=== PATIENT | female | born 1970 | race Caucasian/White ===

== ENCOUNTER 2017-04-16 20:17 | Emergency (ER) | payer OTHER, SELFPAY ==
[~2017-04-16] VITALS: Ht 167.6 cm; Wt 113.4 kg
[2017-04-16] MEDS ORDERED: LISINOPRIL20 MG PO (20:28)
[2017-04-16] MEDS ORDERED: CYMBALTA30 MG PO (20:28)
[2017-09-10] MEDS ORDERED: PERCOCET 5-3251 EACH PO (10:17)
[2017-09-10] MEDS ORDERED: NEURONTIN400 MG PO (10:18)
== END 2017-04-16 23:00 | disposition home or self-care (01) ==
LOC: ED 20:17
DX: K52.9 Noninfective gastroenteritis and colitis, unspecified (principal); J02.9 Acute pharyngitis, unspecified; E87.6 Hypokalemia; F17.200 Nicotine dependence, unspecified, uncomplicated; Z79.899 Other long term (current) drug therapy
CPT/HCPCS: 80053; 85025; 87081; 87880; 96361; 96374; 96375; 99283; J2270; J2550; J7030

== ENCOUNTER → 2017-09-10 | Emergency (ER) | payer OTHER ==
[~2017-09-10] VITALS: Ht 167.6 cm; Wt 113.4 kg
[~2017-09-10] MED LIST: CYMBALTA30 MG PO; LISINOPRIL20 MG PO; NEURONTIN400 MG PO; PERCOCET 5-3251 EACH PO
== END ==
LOC: ED 09:57
DX: S91.112A Laceration without foreign body of left great toe without damage to nail, initial encounter (principal); W26.0XXA Contact with knife, initial encounter

== ENCOUNTER 2017-12-24 21:03 | Inpatient (IN) | payer OTHER ==
[~2017-12-24] VITALS: Ht 182.9 cm; Wt 102.1 kg
[~2017-12-24 21:03] MED LIST changes: +KEFLEX500 MG PO; -LISINOPRIL20 MG PO; +NEURONTIN300 MG PO; -NEURONTIN400 MG PO; +PERCOCET 10-321 EACH PO; -PERCOCET 5-3251 EACH PO; +POTASSIUM CHLO10 MEQ PO; +ROBAXIN-750750 MG PO; +ZESTORETIC 20-1 EACH PO; +ZOFRAN ODT4 MG PO
--- NOTE | 2017-12-25 00:35 | NUR ---
PT ARRIVED FROM ED VIA STRETCHER. SHE WAS ABLE TO WALK FROM THE STRETCHER TO THE BED. VS TAKEN AND WNL. PT REPORT ABD PAIN. RESPIRATIONS ARE EVEN AND NONLABORED. PT ORIENTED TO ROOM AND CALL LIGHT IS WITHIN REACH.
--- NOTE | 2017-12-25 01:30 | NUR ---
MEDICATIONS ADMINISTERED AND ASSESSMENT COMPLETE. PT REPORT NAUSEA HAS RETURNED. MORPHIN ADMINISTERED FOR ABD PAIN 11/01. PT HAS FRESH ICEWATER AT BEDSIDE. WILL ADMINISTER ZOFRAN SOON ABLE. CALL LIGHT IS WITHIN REACH.
--- NOTE | 2017-12-25 02:20 | NUR ---
PT IS AWAKE IN BED DENIES FURTHER NEEDS AT THIS TIME.
--- NOTE | 2017-12-25 04:42 | NUR ---
ASSESSED PT AND ADMINISTERED MEDICATIONS. PT REPORTS NAUSEA HAS INPROVED BUT WOULD LIKE TO STAY ON TOP OF IT. VS AND I&O'S ENTERED AND FRESH ICEWATER AT BEDSIDE. PT DENIES FURTHER NEEDS AT THIS TIME.
--- NOTE | 2017-12-25 04:45 | NUR ---
PT HAS BEEN AWAKE MOST OF THE NIGHT. SHE HAS NAUSEA BUT NO EMESIS SINCE BEING ADMITTED. 40 MEQ KCL IN NS IS INFUSING AT 100MLS/HR. ZOFRAN WAS GIVEN AND SHE HAS REQUIRED MORPHINE X2. 1ST DOSE WAS 2MG AND NEXT DOSE WAS 4MG. SHE DENIES ANY TREMORS, ANXIETY, OR AGITATION FROM ETOH WITHDRAWAL. ADVISED PT TO LET US KNOW IF SHE FEELS THIS WAY. SHE IS ON A CLEAR LIQUID DIET AND HAS ONLY WANTED ICEWATER SO FAR. NICOTINE PATCH IS ON HER RIGHT SHOULDER. ED HOLD ORDERS UNTIL DR. SHEN SEE'S HER.
--- NOTE | 2017-12-25 05:58 | NUR ---
PT IS RESTING WITH EYES CLOSED, RESPIRATIONS ARE EVEN AND NONLABORED. CALL LIGHT IS WITHIN REACH.
--- NOTE | 2017-12-25 07:20 | NUR ---
PLACED CALL TO MD. MD GAVE NEW VERBAL ORDERS. VERIFIED VERBAL ORDERS USING THE READBACK METHOD. NOTIFIED LAB OF NEW ORDERS.
--- NOTE | 2017-12-25 07:47 | NUR ---
PT REPROTS NAUSEA WOKE HER UP. SHE WAS JUST GIVEN PAIN COVERAGE WITH IV MORPHINE, NOW ADMINISTER 12.5 PHENERGAN. PT ALERT AND ORIENTED. COOPERATIVE WITH STAFF
--- NOTE | 2017-12-25 09:25 | NUR ---
PATIENT RESTING IN BED. VITALS AND I&O DONE. CALL LIGHT WITHIN REACH. NO OTHER NEEDS AT THIS TIME.
--- NOTE | 2017-12-25 11:49 | NUR ---
NOTIFIED OF LOW PHOS AND K AT THIS TIME NEW ORDERS GIVEN
--- NOTE | 2017-12-25 13:51 | NUR ---
PT OFF THE UNIT FOE HIDA SCAN AT THIS TIME
--- NOTE | 2017-12-25 16:04 | NUR ---
Medications reconciled with patient interview
--- NOTE | 2017-12-25 16:26 | NUR ---
NRE I.V. SITE ESTABLISHED POST HIDA SCAN. 4MG I.V. MORPHINE GIVEN AT THIS TIME. WILL GIVE PHENERGAN NOW FOR NAUSEA. PT REPORTS 01/01 PAIN.
--- NOTE | 2017-12-25 17:10 | NUR ---
PT HAS BEEN NPO SINCE THIS AM, HIDA SCAN THIS AFTERNOON. PT REPORTS PAIN ABD 5-10/10, 4MG MORPHINE EFFECTIVE, PHENERGAN GIVEN TWICE AND ZOFRAN GIVEN TWICE THIS SHIFT. PT REPORTS FEELING GRUMPY WITH TOO MANY PEOPLE DISTURBING HER IN HER ROOM TODAY. PT IS COOPERATIVE WITH CARE. WAITING FOR RESULTS FROM HIDA SCAN.
--- NOTE | 2017-12-25 17:43 | NUR ---
PT COMPLETED 90% OF DINNER REPORTS MINIMAL/TOLERABLE PAIN 3/10 AT THIS TIME AT HE BACK.
--- NOTE | 2017-12-25 20:00 | NUR ---
PATIENT WAS JUST MEDICATEDBY THE DAYSHIFT NURSE FOR N/V AND DOES NOT REALLY WANT TO BE BOTHERED UNTIL 2200.
--- NOTE | 2017-12-25 21:38 | NUR ---
CALLED AND WANTED ME TO MAKE SSURE THE PATIENT HAD A GALLBLADDER FOLDER, THAT SHE WAS NPO AFTER MIDNIGHT, AND THAT LONG SHE WAS OK WITH IT HE WOULD TALK WITH HER IN THE MORNING ABOUT ADDING HER ON TO SURGERY. THIS WAS DONE.
--- NOTE | 2017-12-25 21:43 | NUR ---
ROUNDED CHARGE. PATIENT IS RESTING IN BED. PATIENT DENIES ANY NAUSEA OR PAIN. NO COMMENTS, QUESTIONS, OR CONCERNS NOTED. NO NEEDS NOTED. CALL LIGHT IN REACH.
--- NOTE | 2017-12-25 22:02 | NUR ---
VITALS AND I&OS DONE AND CHARTED. BEDSIDE TABLE AND CALL LIGHT IN REACH
--- NOTE | 2017-12-25 23:02 | NUR ---
PATIENT REQUESTED THAT NO MEDS OR VITAL SIGNS BE DONE UNTIL 2200. ALL PATIENT'S MEDS FINALLY GIVEN AND PATIENT ASSESSED AND IN BED. SCD'D ON, 6MG IV MS GIVEN FOR 6-8/10 OF ABD AND LOW BACK. PATIENT ALSO SAID SHE WAS NAUSEATED AFTER GETTING UP TO USE THE BATHROOM SO 12.5MG IV PHENERGAN GIVEN SIVP IN 20MLS NS OVER 10 MINUTES ALSO GIVEN. PATIENT'S PAIN NOW DOWN TO 4/10 AND NAUESEA RESOLVING.
--- NOTE | 2017-12-25 23:51 | NUR ---
PATIENT RESTING QUIETLY, SUPINE, EYES CLOSED, RESPIRATIONS REGULAR AND EVEN AT A RATE OF 16BPM. PATIENT APPEARS IN NO DISTRESS.
--- NOTE | 2017-12-25 23:56 | NUR ---
PATIENT NOW NPO FOR POSSIBLE AM SURGERY.
--- NOTE | 2017-12-26 00:49 | NUR ---
PATIENT CONTINUES TO REST SUPINE WITH HEAD OF BED ELEVATED ABOUT 30 DEGRESS. RESPIRATIONS REGULAR AND EVEN AT A RATE OF 16. EYES CLOSED PATIENT APPEARS IN NO DISTRESS.
--- NOTE | 2017-12-26 01:00 | NUR ---
PATIENT UP TO THE BATHROOM TO VOID 300MLS AND BACK TO BED. PATIENT INDEPENDENT IN ROOM, GAIT STEADY, CONNECTS AND DISCONNECTS OWN SCD'S AND TAKES IV POLE WITH HER TO AND FROM BATHROOM.
--- NOTE | 2017-12-26 02:21 | NUR ---
PATIENT RESTING QUIETLY, STILL HAS NOT CALLED FOR ANYTHING. PATIENT MOVES HER HANDS OCCASIONALLY, BUT OTHERWISE IS RESTING QUIETLY AND APPEARS TO BE IN NO DISCOMFORT.
--- NOTE | 2017-12-26 06:44 | NUR ---
PATIENT HAD A RESTFULL NIGHT OTHER THAN USING THE RESTROOM A COUPLE TMES. VOIDING WELL. INDEPENDENT IN ROOM. PATIENT HAD A DOSE OF PHENERGAN AND 6MG MS AND SHE RESTED WELL UNTIL A FEW MINUTES AGO, WHEN SHE BECAME NAUSEATED AGAIN AND GOT 8MG IV ZOFRAN.
--- NOTE | 2017-12-26 07:10 | NUR ---
REPORT RECEIVED FROM COMMERCIAL LIGHT FIXTURE ASSEMBLER RN. PT APPEARS TO BE SLEEPING. AWAKES TO VERBAL STIMULI. REPORTS PAIN THIS MORNING 09/01. PRN MEDICAITON TO BE GIVEN. D5LR @ 85ML/HR IN LEFT HAND IV. NO S/SX OF INFILTRATION OR PHLEBITIS. CALL LIGHT IN REACH. SCD'S IN PLACE. DENIES OTHER NEEDS.
--- NOTE | 2017-12-26 07:44 | NUR ---
PT REPORTING 6/10 PAIN. PRN MORPHINE QIVEN WITH 12.5MG PHENERGAN FOR NAUSEA. DENIES OTHER NEEDS.
--- NOTE | 2017-12-26 08:03 | NUR ---
PATIENT IN BED RESTING ,NPO, WATING ON SHOWER IN 20 MIN, BEFOUR SURGERY, NO OTHER NEEDS AT THIS TIME.
--- NOTE | 2017-12-26 09:00 | NUR ---
PT OOB TO SHOWER WITH SARAH STOUT INDEPENDENTLY. NEW GOWN AND SOCKS. CALL LIGHT IN REACH.
--- NOTE | 2017-12-26 10:00 | NUR ---
LEFT HAND IV INFILTRATED. NEW 20G IV PLACED IN RIGHT FOREARM. PT TOLERATED WELL. RETURNS BLOOD AND FLUSHES WELL. D5LR INFUSING AT 85ML/HR. SCD'S IN PLACE. CALL LIGHT IN REACH.
[2017-12-26] MEDS ORDERED: ZOFRAN4 MG PO (11:27)
[2017-12-26] MEDS ORDERED: PROVENTIL HFA6.7 GM INH (11:27)
--- NOTE | 2017-12-26 13:01 | NUR ---
PT REPORTING PAIN 08/01. PRN TORIDOL GIVEN. NAUSEA ALSO REPROTED. 4M ZOFRAN ADMINISTERED. DENIES FURTHER NEEDS. CALL LIGHT IN REACH.
--- NOTE | 2017-12-26 14:02 | NUR ---
PATIENT IN BED RESTING, STILL WAITING ON HER SURGERY. VITAL TAKEN .CALL LIGHT IN REACH. NO OTHER NEEDS AT THIS TIME.
--- NOTE | 2017-12-26 14:10 | NUR ---
PT OFF FLOOR TO SURGERY.
--- NOTE | 2017-12-26 14:41 | HP ---
[facility] [address], [place] [address] Signed ADMISSION DATE: 12/24/2017 HISTORY: This 47-year-old white woman was seen in the emergency room and evaluated by Dr. Walker. She had been having complaints of generalized abdominal pain, not focal in anyway. She notes inability to eat well due to the pain. She notes no specific food that causes her symptoms, however. She has no associated back pain particularly, though she does describe chronic low back pain. She was seen about a month ago in [place], which an MRI was performed showing gallbladder sludge and uterine fibroids. The patient has had poor oral intake over the past several weeks by the sounds of it. She does not have epigastric or right subcostal pain particularly and no left lower abdominal pain necessarily. Her evaluation in the emergency room includes a gallbladder ultrasound, which showed mild gallbladder wall thickening. No sonographic Fernandes sign and a prominent common bile duct of uncertain etiology without associated mass. Upon close review of the ultrasound, the gallbladder sludge was quite minimal and thickening of the gallbladder wall was quite minimal as well. I agreed to admit the patient over after consultation with Dr. Walker for further evaluation and care. PAST MEDICAL HISTORY: Includes cervical fusion, operation in the past. SOCIAL HISTORY: She does smoke marijuana on an episodic basis. She smokes cigarettes daily. She does drink alcohol. It is uncertain just how much actually. She lives in [place] with a live-in boyfriend. She has grown children. REVIEW OF SYSTEMS: She denies any chest pain or shortness of breath. Has no dysphagia, hematemesis or blood per rectum. She does feel somewhat thirsty. PHYSICAL EXAMINATION: GENERAL: This is a pleasant white woman, who is lying in bed, who does not look systemically toxic. HEENT: Mucous membranes are dry. Trachea is midline. There is no carotid bruit. CHEST: Clear. HEART: Regular without murmur. Electronically Signed By: ANETTE SHEN MD 12/26/17 1441 PATIENT NAME: DILIP GOMEZ HISTORY AND PHYSICAL DATE OF : 66 REPORT #: [id number] PHYSICIAN: ANETTE SHEN MD PCP: GINGER TRUJILLO PA-C REPORT IS CONFIDENTIAL AND NOT TO BE RELEASED WITHOUT AUTHORIZATION [facility] [address], [place] [address] Signed ABDOMEN: Obese, but soft and scaphoid. There is no distention. Palpation reveals no focal tenderness, though if there is any tenderness is more in the right upper abdomen. There is no obvious ascites particularly. EXTREMITIES: Show no clubbing, cyanosis, or edema. LABORATORY DATA: Show a white count at presentation at 2100 hours on December 24 to be 7.8, hematocrit 38.9 with platelets of 323,000 and her white count this morning is 4.1 with hematocrit 32.6, platelets of 224,000. Differential is normal. Chem profile shows electrolytes to be improved this morning. Creatinine is 0.42, phosphorus low at 1.4. Bilirubin initially 1.7, now 1.2. Liver enzymes show lactate dehydrogenase slightly elevated to 24. Lipase approximately 72. Amylase this morning 32. Beta hCG negative. I reviewed her ultrasound report and images. ASSESSMENT: The etiology of her abdominal pain, which has been chronic over the past month, but culminating in dehydration, currently is uncertain. Consideration has been made for biliary source of the problem and in particular with a somewhat dilated bile duct on ultrasound, concern was raised by the interpreting radiologist, Dr. Carl about distal common duct stone. I think it is unlikely. The possibility of pancreatic neoplasm is always a consideration, but her bilirubin was only 1.7 and now down to 1.4, and I think it unlikely and no neoplasm was seen on the ultrasound. As a functional gallbladder problem may be the underlying etiology. We will organize for a CCK-HIDA test. If this is entirely normal, CT scan will be considered and possibly endoscopic evaluation. In the meantime, fluid resuscitation, antibiotic, Ancef and ulcer prophylaxis will be initiated. MD KALYN Calderon/MABELL /[id number] Electronically Signed By: ANETTE SHEN MD 12/26/17 1441 PATIENT NAME: DILIP GOMEZ HISTORY AND PHYSICAL DATE OF : 66 REPORT #: [id number] PHYSICIAN: ANETTE SHEN MD PCP: GINGER TRUJILLO PA-C REPORT IS CONFIDENTIAL AND NOT TO BE RELEASED WITHOUT AUTHORIZATION [address] [address] Signed cc: MD Ginger Marshall PA-C Copies: NATALYA WALKER MD, CHLOE K PA-C ~ Electronically Signed By: ANETTE SHEN MD 12/26/17 1441 PATIENT NAME: DILIP GOMEZ HISTORY AND PHYSICAL DATE OF : 66 REPORT #: [id number] PHYSICIAN: ANETTE SHEN MD PCP: GINGER TRUJILLO PA-C REPORT IS CONFIDENTIAL AND NOT TO BE RELEASED WITHOUT AUTHORIZATION
--- NOTE | 2017-12-26 17:37 | NUR ---
12/26/17 1737 Stephanie López 1715- PT ARRIVES TO PACU ALERT AND ORIENTED X3. PT ON 6 L O2 VIA MASK. PT HAS PILLOW TO BRACE STOMACH WITH COUGHING, RATING PAIN 8/10.
--- NOTE | 2017-12-26 18:20 | NUR ---
RECEIVED PT TO FLOOR. SLIDE TRANSFER TO BED. SCD'S HOOKED UP. LAP SITES X4 WITH STERI STRIPS C/D/I. KEITH DRAIN TO RLQ HAS SOME SHADOWING. ON WHOLE GAUZE AND TAPE. V/S TAKEN. BP SLIGHTY ELEVATED. AT151/103. PAIN REPORTED 10/10. 6MG MORPHINE GIVEN. WATER PROVIDED. PT TOLERATED OK AT THIS TIME. LUNGS SOUND CLEAR. HR IRREGULAR.
--- NOTE | 2017-12-26 18:45 | NUR ---
PT REPORTING PAIN 9/10. 6 MG MORPHINE GIVEN.
--- NOTE | 2017-12-26 19:36 | NUR ---
PT ARRIVED TO FLOOR AT 1820. PAIN 10/10. MORPHINE 6 MG Q30P. WATER AT BEDSIDE. SOME NAUSEA. LAP SITES X4 STERI STRIPS C/D/I. SOME DRAINAGE FRO KEITH DRAIN INSERT SITE. PAIN 9/10 AFTER PAIN MEDICATION.
--- NOTE | 2017-12-26 19:39 | NUR ---
medicated with morphine 6mg iv v/o 12/02 abd pain. toby draining
--- NOTE | 2017-12-26 20:15 | NUR ---
DR SHEN NOTIFIED OF PT INCREASED DRAINAJE FROM KEITH INSERTION SITE, NAD POOR PAIN CONTROL WITH IV MORPHINE. NEW ORDERS FOR OK TO REINFORCE KEITH DRAINAGE SITE AND START PO OXYCODONE 10MG PO Q6H BEFORE
--- NOTE | 2017-12-26 21:32 | NUR ---
HELPED CRISTIN QUINONES WITH CHANGING HER BEDDING. DRAINED KEITH AND CHARTED. PT OR JONI NEEDS ANYTHING ELSE OF NOW.
--- NOTE | 2017-12-26 21:42 | NUR ---
VITALS DONE AND CHARTED PER CRISTIN QUINONES. I&OS DONE AND CHARTED.
--- NOTE | 2017-12-26 21:48 | NUR ---
PATIENT'S KEITH DRAIN SITE WAS SATURATED. ENTIRE DRESSING CHANGED. SPLIT SPONGE DRAIN SPONGES PLACED AND THEN REINFORCED BY 2 ABD PADS AND SECURED WITH SURGICAL TAPE. OTHER LAP SITES LOOK GOOD DRY STERI-STRIPS WITH DRY RED DRAINAGE. MEDICATED FOR NAUSEA WITH PROMETHAZINE 12.5MG IN 20MLS SALINE AND 6MG MS IV, FOLLOWED BY 10MG OXYCODONE. BEDDING ALSO CHANGED.
--- NOTE | 2017-12-26 23:26 | NUR ---
30MG IV TORADOL AND 1 PERCOCET GIVEN FOR ABD PAIN THAT CONTINUES TO BE 10/10 AND ICE PACK APPLIED TO SURGICAL AREA.
--- NOTE | 2017-12-26 23:40 | NUR ---
HERE AND DISCUSSED NOT BEING ABLE TO GET PATIENT'S PAIN UNDER CONTROL. HE INFORMED ME SHE HAS CHRONIC PAIN SO TO JUST KEEP GIVEN THE PAIN MEDS I CAN THEY ARE ORDERED AND THAT I COULD GIVE 0.5-1MG OF ATIVAN Q4HRS PRN FOR ANXIETY. I REPEATED THIS ORDER BACK AND AGREED.
--- NOTE | 2017-12-27 00:44 | NUR ---
1 LITER LR BOLUS STARTED TO RUN OVER AN HOUR. PATIENT HAS HAD 1MG PO ATIVAN AND 6MG MORE IV MORPHINE. PATIENT'S PAIN IS DOWN TO A 7/10 NOW AND SHE IS GETTING MORE COMFORTABLE.
--- NOTE | 2017-12-27 02:08 | NUR ---
PATIENT CONTINUES TO REST QUIETLY AT THIS TIME. O2 SATS 92 % RA AND HEART RATE IS 102. PATIENT RESTING QUIETLY, EYES CLOSED, RESPIRATIONS EVEN AND REGULAR AT A RATE OF 16. SCD'S IN PLACE.
--- NOTE | 2017-12-27 03:20 | NUR ---
VITALS AND I&OS DONE AND CHARTED. HELPED PT TO THE BATHROOM AND BACK TO BED. 2 ICE PACKS GIVEN. BEDSIDE TABLE AND CALL LIGHT IN REACH. PT NEEDS NOTHING MORE AT THIS TIME.
--- NOTE | 2017-12-27 04:55 | NUR ---
HAD A HARD TIME CONTROLLING PAIN AT THE BEGINING OF THE SHIFT, BUT WITH THE USE OF MULTIPLE DOSES OF MORPHINE, 1 PERCOCET, 2 OXYCODONE, AND AND 1MG PO ATIVAN PATIENT FINALLY WAS ABLE TO GET SOME SLEEP. SCD'S ON. PULSE OX 98% ON RA WITH HR OF 68. RESPIRATIONS REGULAR AND EVEN AT 16. PATIENT IS VOIDING FINE. D5LR AT 125MLS HR AND PATIENT ALSO GOT A 1 LITER BOLUS OF LR.
--- NOTE | 2017-12-27 06:13 | NUR ---
PATIENT AGAIN COMPLAINING OF 6/10 ABD PAIN AND OP SITES STILL LOOK GOOD, KEITH DRESSING STILL CLEAN DRY AND INTACT. PATIENT GIVEN 1MG ATIVAN AND 1 PERCOCET.
--- NOTE | 2017-12-27 06:35 | NUR ---
VITALS AND I&OS DONE AND CHARTED. HELPED PT TO THE BATHROOM AND BACK TO BED. FRESH WATER AND CUP OF ICE GIVEN.
--- NOTE | 2017-12-27 08:02 | NUR ---
RECEIVED REPORT FROM WORD PROCESSOR OPERATOR RN. PT IN BED. DENIES NAUSEA OR NEEDS. SCD'S IN PLACE. D5LR@ 125ML/HR. CALL LIGHT IN REACH. PAIN TOLERABLE AT THIS TIME.
--- NOTE | 2017-12-27 08:14 | NUR ---
PATIENT WAS AWAKE, REFUSED ANY BREAKFAST OR ANY CARES, CALL LIGHT IN REACH, NO OTHER NEEDS AT THIS TIME
--- NOTE | 2017-12-27 08:30 | NUR ---
PT HAS DECREASED OUTPUT. FINE CRACKLES IN BACE OF LUNGS.DR SHEN NOTIFIED. NEW ORDERS RECEIVED.
--- NOTE | 2017-12-27 09:03 | NUR ---
PT REPORTING 7/10 PAIN. TORIDOL IV GIVEN. PLAN TO WALK IN HALLS TODASY. FLUIDS AT 125.
--- NOTE | 2017-12-27 10:18 | NUR ---
V/S TAKEN HR AT 126 AT REST. PT AMBULATED 1 LAP HR WAS AT 137 TOOK SOME TIME TO RECOVER TO A HR OF 120. ALL OTHER VITALS WNL.
--- NOTE | 2017-12-27 10:48 | NUR ---
STILL NO OUTPUT. INCREASED HR. DR SHEN NOTIFIED. NEW ORDERS RECEIVED.
--- NOTE | 2017-12-27 12:44 | NUR ---
REPORTING PAIN 10/10. PRN PAIN MEDICATION GIVEN.
--- NOTE | 2017-12-27 13:48 | OR ---
[facility] [address], [place] [address] Signed DATE OF OPERATION: 12/26/2017 SURGEON: Anette Shen MD PREOPERATIVE DIAGNOSES: 1. Acute acalculous cholecystitis. 2. Morbid obesity. 3. Substance dependency (alcohol, marijuana, and oxycodone). POSTOPERATIVE DIAGNOSES: 1. Acute acalculous cholecystitis. 2. Morbid obesity. 3. Substance dependency (alcohol, marijuana, and oxycodone). 4. Occult fatty liver with early cirrhosis and massively enlarged liver. PROCEDURES PERFORMED: 1. Laparoscopic cholecystectomy (top-down technique) with intraoperative cholangiogram, prolonged, very difficult and complicated. 2. Laparoscopic liver biopsy. ANESTHESIA: General endotracheal, Michela Blanquita, C.R.N.A., and local 20 mL of 0.25% Marcaine with epinephrine. INDICATION: This is a 47-year-old white woman, who is a patient of Ginger Eid PA-C. She presented to the emergency room on 12/24/2017, with complaints of generalized abdominal pain which has been recurrent over the preceding month. A gallbladder ultrasound was performed, which showed minimal sludge in the gallbladder and was thought to be possibly a dilated common duct. The ampulla was not able to be visualized. There were no stones. The patient has a prodigious alcohol history, drinking alcohol daily, taking marijuana orally, at least monthly, sometimes more often and has been on oxycodone at least 4 to 6 times a day since cervical fusion. Operation, a number of months ago. She underwent a CCK-HIDA test yesterday, which showed normal ejection fraction but market reproduction of her symptoms. Mindful of the multiplicity of etiologies for abdominal pain, but given the probability, this represents a cholecystitis problem. I have recommended cholecystectomy preferred by laparoscopic approach. The risks of bleeding, infection, bile duct injury, need for Electronically Signed By: ANETTE SHEN MD 12/27/17 7508 PATIENT NAME: DILIP GOMEZ OPERATIVE REPORT DATE OF : 66 REPORT #: [id number] PHYSICIAN: ANETTE SHEN MD PCP: GINGER EID PA-C REPORT IS CONFIDENTIAL AND NOT TO BE RELEASED WITHOUT AUTHORIZATION [facility] [address], [place] [address] Signed open procedure, and most importantly failure to cure her symptoms was reviewed in detail. She understands and wished to proceed. FINDINGS: Abdominal obesity was noted as sick as before of course. Not expected, but nevertheless present was massive enlargement of the liver with fatty infiltration and early cirrhotic changes. The infundibulum of gallbladder was obscured due to the fatty nature of the medial segment of the left lobe of the liver. On the basis of those findings and with the findings of the gallbladder appearing to be chronically inflamed, cholecystectomy was performed. A top-down approach was used. The back wall of the gallbladder was left in situ in the upper 1/2 of the liver bed, but later mucosa obliterated. The infundibulum was completely excised and remarkably ultimately a cholangiogram was performed, which showed no sign of dilated common duct and no filling defect within the biliary tree. There was spillage of contrast at the insertion site into the cystic duct, which was of no concern at all. The liver was biopsied, given its fatty infiltrated appearance and early cirrhotic change. A drain was placed as well. The mucosa of the gallbladder was chronically inflamed. There were no stones. The mucoid bilious fluid of the gallbladder was obviously abnormal. DESCRIPTION OF PROCEDURE: The patient was brought to the operating room, given a general endotracheal anesthetic. Preoperative antibiotic Ancef had been ongoing. Sequential compression device stockings used and heparin subcutaneously administered. After satisfactory general endotracheal anesthesia and resolution of relatively frequent PVCs with administration of some lidocaine, the abdomen was prepared with a chlorhexidine solution and draped sterilely. She had a very thick abdominal wall pannus. An infraumbilical incision was made and using an open Rashad cannula technique, the abdomen was entered and pneumoperitoneum achieved to a level of 14 mmHg of carbon dioxide gas. Intraabdominal inspection was undertaken showing a markedly enlarged fatty liver. An epigastric 12 mm port was placed and two additional right midclavicular and right anterior axillary line 5 mm ports. The gallbladder was visualized after elevating the very heavy right lobe of the liver and medial segment of left lobe of the liver. The gallbladder was chronically inflamed. The findings were disturbing in the gallbladder infundibulum and cystic duct was completely obscured by a markedly enlarged liver lobe. Under the circumstances, deemed advisable to place a fan retractor. A mid epigastric 5 mm port was placed for this purpose. Faith of the gallbladder was grasped and elevated cephalad, but given the heavy nature of the liver, it was clear that this would be untenable for exposure of the infundibulum of the gallbladder. On that basis, a fan retractor was used to elevate the medial segment of left lobe of the liver to better visualize the gallbladder. Though, the infundibulum was still obscured, it was deemed most advisable to do a "top-down" dissection of the gallbladder. Using electrocautery, the gallbladder anteriorly and Electronically Signed By: ANETTE SHEN MD 12/27/17 1348 PATIENT NAME: DILIP GOMEZ OPERATIVE REPORT DATE OF : 66 REPORT #: [id number] PHYSICIAN: ANETTE SHEN MD PCP: GINGER EID PA-C REPORT IS CONFIDENTIAL AND NOT TO BE RELEASED WITHOUT AUTHORIZATION [facility] [address], [place] [address] Signed superiorly was dissected free with electrocautery. Without much time, entry to the gallbladder was noted. The mucoid sick-appearing bile was noted. This was suctioned free. There were no stones. Dissection was begun more fully, but it was deemed most advisable at the moment to leave the back wall of the gallbladder as the friable liver bed wall was subjected to easy bleeding. With meticulous care, the gallbladder was dissected free inferiorly until the back wall area could be more fully entered. Areas of bleeding were secured with electrocautery or clips and sometimes clips in significant numbers, but always in a safe area. Ultimately, an infundibulum could be more fully dissected free ultimately identifying the cystic duct itself. A clip was applied across the gallbladder cystic duct junction and transverse choledochotomy made in the cystic duct. The egress of normal-appearing clear bile was noted on retrograde milking of the duct. An Melton type cholangiocatheter was inserted into the cystic duct. It was not easy to secure the clamp fully to avoid bile spillage, but all of that could be done from the moment and therefore intraoperative fluoroscopy undertaken. Free flow of contrast was noted into the biliary tree with prompt emptying into the duodenum. There was no sign of filling defect biliary anomaly or dilated duct as had been suggested by preoperative ultrasound. There was admittedly spillage at the insertion site of the catheter into the cystic duct of no consequence at all. The cystic duct was triply clipped and divided and the gallbladder essentially removed from that point as it had been completely freed up. It was placed in an endobag and extracted through the infraumbilical port site, opened on the back table and found to have significant cholesterolosis, subacute and chronic inflammation, but no sign of stones or neoplasm. Irrigation was undertaken in subhepatic space. Using electrocautery, the retained mucosa on the back wall of the gallbladder was cauterized completely. This obliterated the retained mucosa (which was significantly attenuated anyway). Irrigation was undertaken. Overall, there was good hemostasis, but given the extent of dissection, the friability of the liver was then soaked with some Moise and hemostatic powder was insufflated into the hepatic bed. Through a right-sided trocar site, a 7 mm flat Deejay drain was placed in the subhepatic space and secured to the skin with nylon suture and attached to bulb suction. Plans were then made for liver biopsy using a biopsy gun, biopsy device through the epigastric area. Biopsy was taken in the medial segment of the left lobe of the liver. Some bleeding occurred as would be expected. It was easily secured with cautery. Irrigation was undertaken. Excess irrigation fluid was suctioned free. Plans were then made for closure. The infraumbilical fascial incision was reapproximated with interrupted 0 Vicryl suture. All wounds were copiously irrigated with saline solution and 20 mL of 0.25% Marcaine with epinephrine injected locally in the incisions. The skin was then closed with interrupted 3-0 Vicryl. Steri-Strips were applied. Drains attached to bulb suction. Electronically Signed By: ANETTE SHEN MD 12/27/17 1348 PATIENT NAME: DILIP GOMEZ OPERATIVE REPORT DATE OF : 66 REPORT #: [id number] PHYSICIAN: ANETTE SHEN MD PCP: GINGER EID PA-C REPORT IS CONFIDENTIAL AND NOT TO BE RELEASED WITHOUT AUTHORIZATION [facility] [address] [place] [address] Signed The operation was prolonged, complicated, and difficult lasting 4 times longer than usual and extremely difficult. MD KALYN Calderon/LYN /[id number] cc: RAJI Whitmore MD Copies: GINGER EID PA-C, SHELDON MD ~ Electronically Signed By: ANETTE SHEN MD 12/27/17 1348 PATIENT NAME: DILIP GOMEZ OPERATIVE REPORT DATE OF : 66 REPORT #: [id number] PHYSICIAN: ANETTE SHEN MD PCP: GINGER EID PA-C REPORT IS CONFIDENTIAL AND NOT TO BE RELEASED WITHOUT AUTHORIZATION
--- NOTE | 2017-12-27 14:23 | NUR ---
PATIENT UP IN HER CHAIR. SHOWER REFUSED, BEDDING CHANGED, FRESH WATER AND TEA GIVEN, CALL LIGHT IN REACH, NO OTHER NEEDS AT THIS TIME.
--- NOTE | 2017-12-27 14:30 | NUR ---
PT OOB UP TO CHAIR WITH TEA. D5LR @ 125. PT REPORTING NAUSEA SO ZOFRAN 4M GIVEN. DRESSING CHANGE TO KEITH DRAIN INSERT SITE. MODERATE AMOUNT SEROSANG DRAINAGE.
--- NOTE | 2017-12-27 14:32 | EKG ---
[facility] [address] [facility] [place], [place] [address] Signed Sinus rhythm with frequent premature ventricular complexes ST \T\ T wave abnormality, consider lateral ischemia Abnormal ECG No previous ECGs available Confirmed by BRIJESH VARGAS DO ([id number]) on 12/27/2017 2:32:19 PM Electronically Signed By: BRIJESH VARGAS DO 12/27/17 1432 PATIENT NAME: DILIP GOMEZ Electrocardiogram DATE OF : 66 PHYSICIAN: BRIJESH VARGAS DO REPORT #: [id number] REPORT IS CONFIDENTIAL AND NOT TO BE RELEASED WITHOUT AUTHORIZATION
--- NOTE | 2017-12-27 18:39 | NUR ---
AMBULATED IN WARE 3 TIMES THIS SHIFT. REPORTS CONSTANT NAUSEA AND PAIN DESPITE INTERVENTIONS. MANY PRN PAIN AND NAUSEA MEDS AVALIBLE. OT TACHY THIS SHIFT WITH HR UP TO 137 WITH AMBULATION. HAS GOTTEN BETTER TOWARDS END OF SHIFT AT 106. U/O HAS INCREASED. SEROSANG FROM KEITH DRAIN. D5LR 125. LAP SITES LOOK GOOD.
--- NOTE | 2017-12-27 20:00 | NUR ---
PATIENT RESTING QUIETLY, RESPIRATIONS REGULAR AND EVEN. PULSE OX 96% ON RA AND HR=.70
--- NOTE | 2017-12-27 21:28 | NUR ---
VITALS AND I&OS DONE AND CHARTED. CALL LIGHT AND BEDSIDE TABLE IN REACH. CLEANED UP HER ROOM AND FRESH WATER GIVEN.
--- NOTE | 2017-12-27 23:08 | NUR ---
PATIENT UP TO THE BATHROOM WITH STANDBY ASSIST. PAIN IS 7/10 IN THE ABD AND BACK NOW WITH SOME NAUSEA.
--- NOTE | 2017-12-27 23:29 | NUR ---
PATIENT GIVEN 12.5MG PROMETHAZINE IN 20MLS OF NS AND 30MG TORADOL IV GIVEN AND A NEW BAG OF D5LR HUNG.
--- NOTE | 2017-12-28 01:32 | NUR ---
PATIENT WAS JUST AMBULATED TO THE BATHROOM WITH HER IV POLE AND BACK TO BED AFTER VOIDING. SCD'S AND PULSE OX HOOKED BACK UP.
--- NOTE | 2017-12-28 01:54 | NUR ---
PATIENT SAYING SHE IS UNABLE TO SLEEP NOW AND HER ABD PAIN IS 8/10. NOT DUE FOR ANY MORE PAIN MEDICATION 1MG PO ATIVAN GIVEN TO TRY AND HELP HER SLEEP.
--- NOTE | 2017-12-28 04:02 | NUR ---
PATIENT RESTING QUIETLY, EYES CLOSED, RESPIRATIONS EVEN AND REGULAR AT A RATE OF 18. SATS 98% ON ROOM AIR WITH HR=90.
--- NOTE | 2017-12-28 04:57 | NUR ---
VITALS DONE AND CHARTED. FRESH ICE WATER GIVEN. BEDSIDE TABLE AND CALL LIGHT IN REACH. PT NEEDS NOTHING MORE AT THIS TIME.
--- NOTE | 2017-12-28 06:12 | NUR ---
PATIENT STILL HAVING PROBLEMS KEEPING PAIN UNDER CONTROL THROUGH THE NIGHT WITH PERCOCET, ATIVAN, MOTRIN, TORADOL, AND NAUSEA WITH PROMETHAZINE AND ZOFRAN. PATIENT DOES NOT KNOW HOW SHE IS GOING TO BE ABLE TO DEAL WITH THIS AT HOME. PATIENT HAS BEEN UP VOIDING WELL AND IV FLUIDS STILL RUNNING WITHOUT DIFFICULTY.
--- NOTE | 2017-12-28 06:22 | NUR ---
HELPED PT TO THE BATHROOM AND BACK TO BED. SCD'S PLUGGED BACK IN. BEDSIDE TABLE AND CALL LIGHT WITHIN REACH. PT NEEDS NOTHING MORE AT THIS TIME.
--- NOTE | 2017-12-28 08:00 | NUR ---
RECEIVED REPORT FROM POPPED [employer]N [employer]EN ATTENDANT RN. PT APPEARS TR OBE SLEEPING. RESPIRATIONS ARE EQUAL AND NONLABORED. CPOX IN PLACE. HR 103 O2 94%. D5LR @ 125. SCD'S IN PLACE. CALL LIGHT IN REACH.
[2017-12-28] MEDS ORDERED: IBUPROFEN600 MG PO (08:52)
[2017-12-28] MEDS ORDERED: NICOTINE PATCH1 EAC1 TD (08:52)
[2017-12-28] MEDS ORDERED: OXYCODONE-ACET1 EAC3 PO (08:53)
[2017-12-28] MEDS ORDERED: FAMOTIDINE20 MG PO (08:53)
--- NOTE | 2017-12-28 09:00 | NUR ---
ROUNDED WITH DR SHEN. DRAIN DC'D. PT SL. DR GLEZ'D TO GIVE PERCOCET EARLY FOR 10/01 PAIN. DISCHARGE ORDERS RECEIVED. IV REMOVED.
[2017-12-28] MEDS ORDERED: PERCOCET 7.5-31 EACH PO (09:16)
--- NOTE | 2017-12-29 14:33 | DS ---
[facility] [address], [place] [address] Signed ADMISSION DATE: 12/25/2017 DISCHARGE DATE: 12/28/2017 REASON FOR ADMISSION: This 47-year-old white woman was seen in the emergency room by Dr. Walker with complaints of generalized abdominal pain, not focal, particularly. She notes inability to eat well due to the pain. This had been going on at least a month. She was seen a month ago in [place] where an MRI was performed showing gallbladder sludge, and uterine fibroids. The patient has had poor oral intake over the preceding several weeks. Evaluation in the emergency room included a gallbladder ultrasound, which showed mild gallbladder wall thickening. No sonographic Fernandes sign and prominent common bile duct of uncertain etiology without associated pancreatic neoplasm. She is admitted for further evaluation and care. PERTINENT PHYSICAL EXAMINATION: GENERAL: Showed a pleasant, obese white woman who did not look systemically toxic. Mucous membranes were dry. Trachea midline. CHEST: Clear. HEART: Regular without murmur. ABDOMEN: Quite obese, but soft and scaphoid. There was no sign of distention, particularly palpation revealed no focal tenderness, though if any tenderness, some in the right upper abdomen. LAB STUDIES: At presentation showed her white count to be 7.8, hematocrit 38.9, platelets 323,000. Creatinine 0.42, phosphorus low at 1.4. Bilirubin initially 1.7, decreased to 1.2. Liver enzymes showed lactate dehydrogenase elevated mildly. Lipase was normal at 72, amylase 32. Beta hCG was negative. HOSPITAL COURSE: The patient was admitted with uncertainty as to the underlying cause of her discomfort and pain. Although the ultrasound showed some minimal amount of sludge, it was unclear if her symptoms which were now becoming rather chronic, was related to acalculus cholecystitis. On that basis, she underwent a CCK-HIDA test. It showed a normal ejection fx but marked reproduction of her complaint of abdominal pain.On December 26, 2017, she underwent laparoscopy where she was found to have a chronically inflamed gallbladder. Unexpectedly, she had a markedly enlarged liver with early cirrhotic changes. Electronically Signed By: ANETTE SHEN MD 12/29/17 1433 PATIENT NAME: DILIP GOMEZ DISCHARGE SUMMARY DATE OF : 66 REPORT #: [id number] PHYSICIAN: ANETTE SHEN MD PCP: GINGER EID PA-C REPORT IS CONFIDENTIAL AND NOT TO BE RELEASED WITHOUT AUTHORIZATION [facility] [address], [place] [address] Signed Cholecystectomy was performed, though was particularly complex and challenging given the enlarged liver and early cirrhotic changes. A top-down approach was required for safe cholecystectomy. Cholangiogram was still able to be performed, which showed no sign of filling defect or large common duct or ampullary abnormality. A drain was placed given the length and extent of operation. Postoperatively, she had progressive improvement. She was soon thereafter able to tolerate oral intake though she still complained of incisional pain. Her pre op sx were improved, but not completely gone. I suspect simple liver engorgement and chronic inflammation may have been part of her problem. It was noted that she has a very extensive alcohol abuse history in addition to longstanding use of opiate pain medication for her cervical spine surgery, which was several months ago. She had no sx of alcohol withdrawal syndrome post operatively, and says she is committed to avoiding alcohol at time of discharge. DISCHARGE MEDICATIONS: Will include, 1. Nicotine patch 21 mg topically daily #30 refill. 2. Percocet 7.5/325 1-2 p.o. q.4 hours p.r.n. pain, #10. 3. Pepcid 20 mg p.o. b.i.d. 4. Ibuprofen 600 mg p.o. q.6 hours p.r.n. pain. She will continue with her lisinopril hydrochlorothiazide 1 tab p.o. daily (13/03.5.). 5. Oxycodone Tylenol combination as before under the discretion of her neurosurgeon. 6. Gabapentin 300 mg p.o. t.i.d. 7. Robaxin 750 mg p.o. b.i.d. as needed for muscle spasm. 8. Albuterol inhaler 2 puffs q.6 hours as needed for wheezing. 9. Zofran 4 mg 1-2 p.o. q.8 hours as needed. DISCHARGE DIAGNOSES: 1. Acute acalculous cholecystitis with chronic abdominal pain, s/p Lap choleycstectomy with intraoperative cholangiogram and liver bx... prolonged complicated and difficult. 2. Occult fatty enlargement of liver with early cirrhotic changes, status post laparoscopic biopsy. 3. Daily alcohol use and abuse. 4. Episodic marijuana use. 5. Daily smoking. 6. Obesity. 7. Hypertension. 8. Chronic pain syndrome, ongoing Rx of oxycodone, and Tylenol. Electronically Signed By: ANETTE SHEN MD 12/29/17 1433 PATIENT NAME: DILIP GOMEZ DISCHARGE SUMMARY DATE OF : 66 REPORT #: [id number] PHYSICIAN: ANETTE SHEN MD PCP: GINGER EID PA-C REPORT IS CONFIDENTIAL AND NOT TO BE RELEASED WITHOUT AUTHORIZATION [facility] [address] [place] [address] Signed FOLLOWUP PLAN: She is return to see me in approximately four weeks. She should lift no more than 20 pounds for the next 2 weeks. She is permitted to shower. She should walk on a daily basis. She should drink no more alcohol. Avoid smoking marijuana and avoid smoking altogether. She will follow up with Ginger Eid her primary provider as well. MD KALYN Calderon/LYN /[id number] cc: RAJI Whitmore MD Copies: GINGER EID PA-C, SHELDON MD ~ Electronically Signed By: ANETTE SHEN MD 12/29/17 1433 PATIENT NAME: DILIP GOMEZ DISCHARGE SUMMARY DATE OF : 66 REPORT #: [id number] PHYSICIAN: ANETTE SHEN MD PCP: GINGER EID PA-C REPORT IS CONFIDENTIAL AND NOT TO BE RELEASED WITHOUT AUTHORIZATION
== END 2017-12-28 09:33 | disposition home or self-care (01) | DRG 418 ==
LOC: ED 21:03 → MS 21:04
PROVIDERS: ADMIT Surgery
PROC: 0FB24ZX Excision of Left Lobe Liver, Percutaneous Endoscopic Approach, Diagnostic (ICD-10-PCS; 2017-12-26)
PROC: BF101ZZ Fluoroscopy of Bile Ducts using Low Osmolar Contrast (ICD-10-PCS; 2017-12-26)
PROC: 0FT44ZZ Resection of Gallbladder, Percutaneous Endoscopic Approach (ICD-10-PCS; principal; 2017-12-26 12:30)
DX: K81.2 Acute cholecystitis with chronic cholecystitis (principal); F11.20 Opioid dependence, uncomplicated; F17.210 Nicotine dependence, cigarettes, uncomplicated; E66.9 Obesity, unspecified; E86.0 Dehydration; K76.0 Fatty (change of) liver, not elsewhere classified; K74.60 Unspecified cirrhosis of liver; F10.20 Alcohol dependence, uncomplicated; F12.20 Cannabis dependence, uncomplicated; F41.9 Anxiety disorder, unspecified; I10 Essential (primary) hypertension; G89.4 Chronic pain syndrome; Z98.1 Arthrodesis status; Z79.899 Other long term (current) drug therapy; Z68.30 Body mass index [BMI] 30.0-30.9, adult
CPT/HCPCS: 00790; 36415; 74300; 76705; 78227; 80053; 81001; 82150; 82247; 82465; 83615; 83690; 84100; 84478; 84550; 84703; 85025; 88304; 88307; 88313; 93005; 93010; 94762; 96361; 96374; 96375; 96376; 99285; 99406; A9537; G0378; G0480; J0330; J0690; J1100; J1170; J1644; J1885; J2250; J2270; J2405; J2550; J2704; J2805; J3010; J7030; J7060; J7120; Q9967

== ENCOUNTER 2018-05-28 18:49 | Emergency (ER) | payer OTHER ==
[~2018-05-28] VITALS: Ht 182.9 cm; Wt 102.1 kg
[~2018-05-28 18:49] MED LIST changes: +FAMOTIDINE20 MG PO; +IBUPROFEN600 MG PO; +NICOTINE PATCH1 EAC1 TD; +OXYCODONE-ACET1 EAC3 PO; +PERCOCET 7.5-31 EACH PO; +PROVENTIL HFA6.7 GM INH; +ZOFRAN4 MG PO
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
== END 2018-05-28 19:50 | disposition home or self-care (01) ==
LOC: ED 18:49
PROC: 0XQTXZZ Repair Left Ring Finger, External Approach (ICD-10-PCS; principal; 2018-05-28)
DX: S61.215A Laceration without foreign body of left ring finger without damage to nail, initial encounter (principal); F17.200 Nicotine dependence, unspecified, uncomplicated; Z79.899 Other long term (current) drug therapy; Z23 Encounter for immunization; W26.8XXA Contact with other sharp object(s), not elsewhere classified, initial encounter
CPT/HCPCS: 12001; 90471; 90715; 99282-25

== ENCOUNTER 2020-08-15 20:39 | Emergency (ER) | payer OTHER ==
[~2020-08-15] VITALS: Ht 182.9 cm; Wt 124.7 kg
[2020-08-16] MEDS ORDERED: CYCLOBENZAPRINE10 MG PO (00:07)
[2020-08-16] MEDS ORDERED: ULTRAM50 MG PO (00:07)
== END 2020-08-16 00:23 | disposition home or self-care (01) ==
LOC: ED 20:39
DX: M54.42 Lumbago with sciatica, left side (principal)
CPT/HCPCS: 72131; 73700; 81001; 96374; 96375; 99284-25; J1170; J1885; J2405

== ENCOUNTER 2022-08-21 20:05 | Emergency (ER) | payer OTHER ==
[~2022-08-21] VITALS: Ht 182.9 cm; Wt 136.1 kg
[~2022-08-21 20:05] MED LIST changes: +CYCLOBENZAPRINE10 MG PO; +ULTRAM50 MG PO
--- OUTSIDE RECORDS SUMMARY | 2022-08-21 20:08 | XMS ---
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 - 2 Visits in 30 Days CARE PROVIDERS -[facility]- Dentist: [employer] [facility] PHONE: [phone] SHOSHANA TRUJILLO Physician Communications Marketing Intern 05/29/2018-Current PHONE: [phone] Margaret has no Care Guidelines for this patient. EFrancisco VISIT COUNT (12 MO.) [address] [place] [address] TOTAL 2 NOTE: Visits indicate total known visits. ED/UCC VISIT TRACKING (12 MO.) 08/21/2022 20:05 [facility] TYPE: Emergency COMPLAINT: - WOUND CHECK 08/15/2022 12:16 [facility] [place] TYPE: Emergency COMPLAINT: - SWELLING/BODY PART DIAGNOSES: - Chronic obstructive pulmonary disease, unspecified - Contact with and (suspected) exposure to COVID-19 - Multiple subsegmental pulmonary emboli without acute cor pulmonale - Nicotine dependence, cigarettes, uncomplicated - Nontraumatic ischemic infarction of muscle, left lower leg - Other long term care social worker (current) drug therapy - Other pulmonary embolism without acute cor pulmonale - Shortness of breath INPATIENT VISIT TRACKING (12 MO.) 08/15/2022 16:13 [facility] [place] [facility] TYPE: Surgery DIAGNOSES: - Encounter for screening, unspecified - Other disorder of circulatory system - Other pulmonary embolism without acute cor pulmonale [email or web address]
[2022-08-21] MEDS ORDERED: BACTRIM DS TAB1 EACH PO (23:42)
[2022-08-21] MEDS ORDERED: CEPHALEXIN500 MG PO (23:42)
[2022-08-22 00:05] VITALS: BP 129/82
== END 2022-08-22 00:08 | disposition home or self-care (01) ==
LOC: ED 20:05
DX: T81.41XA Infection following a procedure, superficial incisional surgical site, initial encounter (principal); F17.200 Nicotine dependence, unspecified, uncomplicated; Z79.899 Other long term (current) drug therapy
CPT/HCPCS: 36415; 74177; 80053; 85025; 99284-25; A9270; Q9967

== ENCOUNTER 2024-09-29 11:58 | Emergency (ER) | payer OTHER ==
[~2024-09-29] VITALS: Ht 182.9 cm; Wt 154.3 kg
[~2024-09-29 11:58] MED LIST changes: +BACTRIM DS TAB1 EACH PO; +CEPHALEXIN500 MG PO
[2024-09-29 12:11] LABS: BASOPHILS 0.6 % (0.1-1.2); EOSINOPHILS 0.9 % (0.7-5.8); LYMPHOCYTES 11.9 % (19.3-51.7); MCH 29.1 PG (25.6-32.2); MCHC 31.7 g/dL (32.2-35.5); MCV 91.8 fL (79.4-94.8); MONOCYTES 4.1 % (4.7-12.5); NEUTROPHILS 82.2 % (34.0-71.1); RBC 4.61 M/uL (3.93-5.22)
[2024-09-29] MEDS ORDERED: ALBUTEROL SULFATE 0.5% 2.5 MG/0.5 ML VIAL INH ONE (12:15)
[2024-09-29] MEDS ORDERED: MAGNESIUM SULFATE 2 GM/50 ML BAG IV ONE (12:15)
[2024-09-29] MEDS ORDERED: POTASSIUM CHLO10 ME1 PO (12:15)
[2024-09-29] MEDS ORDERED: HYDROCODON-ACE1 EA10 PO (12:16)
[2024-09-29] MEDS ORDERED: BENZONATATE200 MG PO (12:16)
[2024-09-29] MEDS ORDERED: AZITHROMYCIN250 MG PO (12:17)
[2024-09-29] MEDS ORDERED: FUROSEMIDE40 MG PO (12:17)
[2024-09-29] MEDS ORDERED: PREGABALIN50 MG PO (12:18)
[2024-09-29] MEDS ORDERED: ELIQUIS5 MG PO (12:18)
[2024-09-29] MEDS ORDERED: LORAZEPAM2 MG NG (12:19)
[2024-09-29] MEDS ORDERED: LOSARTAN POTAS100 MG PO (12:19)
[2024-09-29] MEDS ORDERED: FLUTICASONE PRO16 GM NAS (12:20)
[2024-09-29 12:23] LABS: INR 0.98 (0.80-1.30); PROTIME 12.6 Sec (11.2-14.2)
[2024-09-29 12:35] LABS: ALT (SGPT) 19.0 U/L (14-59); AST (SGOT) 14.0 U/L (15-37); GLOMERULAR FILTRATION RATE,EST 102.0 mL/min (>60); PROTEIN, TOTAL 7.4 g/dL (6.4-8.2); UREA NITROGEN 12.0 mg/dL (7-18)
[2024-09-29] MEDS ORDERED: FUROSEMIDE 100 MG/10 ML VIAL IV ONE (12:45)
[2024-09-29 13:05] LABS: BLOOD/HGB, URINE TRACE-I (Negative); KETONE, URINE NEGATIVE (Negative); LEUK ESTERASE, URINE NEGATIVE (negative); NITRITE, URINE NEGATIVE (negative)
[2024-09-29 13:11] LABS: EPITHELIAL CELLS, URINE 0 /lpf (0-1+)
[2024-09-29 13:12] LABS: BACTERIA, URINE RARE /hpf (negative); CASTS, URINE NONE SEEN \\lpf; CRYSTALS, URINE NONE SEEN (0-1+); REFLEX CULTURE, URINE No (No)
[2024-09-29] MEDS ORDERED: ACETAMINOPHEN 325 MG TAB PO ONE (13:30)
[2024-09-29 18:49] VITALS: BP 168/88
--- NOTE | 2024-09-29 22:13 | EKG ---
[facility] [address] [facility] [place] [address] Signed Sinus tachycardia with frequent premature ventricular complexes Nonspecific ST abnormality Prolonged QT Abnormal ECG When compared with ECG of 15-AUG-2022 12:31, T wave inversion less evident in Inferior leads T wave inversion no longer evident in Anterior leads Confirmed by Patrick Lal MD () on 09/29/2024 10:13:16 PM Electronically Signed By: PATRICK LAL MD 09/29/24 2213 PATIENT NAME: DILIP GOMEZ VLADIMIR Electrocardiogram DATE OF : 66 PHYSICIAN: PATRICK LAL MD REPORT #: [id number] REPORT IS CONFIDENTIAL AND NOT TO BE RELEASED WITHOUT AUTHORIZATION
== END 2024-09-29 18:49 | disposition short-term general hospital (02) ==
LOC: ED 11:58
PROVIDERS: Emergency Medicine
DX: J96.00 Acute respiratory failure, unspecified whether with hypoxia or hypercapnia (principal); I50.9 Heart failure, unspecified; F17.200 Nicotine dependence, unspecified, uncomplicated; Z79.51 Long term (current) use of inhaled steroids; Z79.899 Other long term (current) drug therapy
CPT/HCPCS: 36415; 51701; 71045; 80053; 81001; 82803; 83880; 84484; 85025; 85610; 93005; 93010; 94644; 94799; 99291; A9270; J1938; J3475